=== PATIENT | female | born 1995 | race Caucasian/White ===

== ENCOUNTER 2016-09-22 14:51 | Emergency (ER) | payer OTHER ==
[~2016-09-22] VITALS: Wt 54.0 kg
[2016-09-22] MEDS ORDERED: morphine 4 MG/ML VIAL IV STA ×2 (15:22→18:34)
[2016-09-22] MEDS ORDERED: ONDANSETRON 4 MG INJ IV STA (15:22)
[2016-09-22] MEDS ORDERED: PIPER-TAZO 3.375 GM IV (PMX) 100 ML IVPB STA (15:22)
[2016-09-22] MEDS ORDERED: SOD CHLORIDE 0.9% 1,000 ML IV STA (15:22)
[2016-09-22] MEDS ORDERED: SODIUM CHLORIDE 0.9% 1L BAG IV* STA (15:22)
[2016-09-22] MEDS ORDERED: ACETAMINOPHEN 325 MG TAB PO ONE (15:30)
--- NOTE | 2016-09-22 16:14 | RADRPT ---
PROCEDURE: XR Chest. CLINICAL INDICATION: Cough. Sepsis. TECHNIQUE: Single frontal view. COMPARISON: None. FINDINGS: The lungs are clear. The heart size is normal. There is no pleural effusion. There is no pneumothorax. IMPRESSION: 1. Normal chest radiograph. RPTAT: QQ .Kwesi Lewis MD, Date Time Electronically viewed and signed by .Kwesi Lewis MD, on 09/22/2016 16:14 .R/
[2016-09-22 16:26] LABS: ADD SCAN DIFF NO
[2016-09-22 16:30] LABS: BASOPHILS % 0.1 % (0.0-2.0); HEMATOCRIT 39.1 % (37.0-47.0); HEMOGLOBIN 14.1 g/dl (12.0-16.0); LYMPHOCYTES # 1.4 10^3/ul (0.8-2.9); LYMPHOCYTES % 8.4 % (15.0-51.0); MEAN CORPUSCULAR HEMOGLOBIN 30.7 pg (29.0-33.0); MEAN CORPUSCULAR HGB CONC 36.1 g/dl (32.0-37.0); MEAN CORPUSCULAR VOLUME 85.2 fl (82.0-101.0); MEAN PLATELET VOLUME 9.9 fl (7.4-10.4); MONOCYTE # 0.8 10^3/ul (0.3-0.9); MONOCYTES % 4.5 % (0.0-11.0); NEUTROPHIL # 14.6 10^3/ul (1.6-7.5); NEUTROPHILS % 86.5 % (39.0-77.0); PLATELET COUNT 352 10^3/UL (140-415); RED BLOOD COUNT 4.59 10^6/ul (4.20-5.40); RED CELL DISTRIBUTION WIDTH 11.8 % (11.5-14.5); WHITE BLOOD COUNT 16.9 10^3/ul (4.8-10.8)
[2016-09-22 16:33] LABS: ADD UMIC NO; URINE BILIRUBIN (Dip) NEGATIVE (NEGATIVE); URINE BLOOD (Dip) NEGATIVE (NEGATIVE); URINE COLOR LT. YELLOW (YELLOW); URINE GLUCOSE (Dip) NEGATIVE (NEGATIVE); URINE KETONES (Dip) 40 (NEGATIVE); URINE LEUKOCYTE ESTERASE (Dip) NEGATIVE (NEGATIVE); URINE NITRITE (Dip) NEGATIVE (NEGATIVE); URINE TOTAL PROTEIN (Dip) NEGATIVE (NEGATIVE); URINE UROBILINOGEN (Dip) 0.2 E.U./dL (0.1-1.0)
--- NOTE | 2016-09-22 16:34 | RADRPT ---
PROCEDURE: CT Abdomen and Pelvis without contrast. CLINICAL INDICATION: Abdominal pain. TECHNIQUE: Multiple contiguous axial CT images of the abdomen and pelvis were obtained without the administration of intravenous contrast. Coronal and sagittal reconstructions were also performed. CTDIvol (mGy): 4.54; Total Exam DLP (mGy-cm): 226.07. One or more of the following dose reduction techniques were utilized: - Automated exposure control. - Adjustment of the mA and/or kV according to patient size. - Use of iterative reconstruction technique. COMPARISON: None. FINDINGS: Limited imaging of the lower thorax is unremarkable. The liver and spleen are homogeneous in density. The gallbladder, pancreas and adrenal glands are u nremarkable. The kidneys are symmetric in size. There are no nephroureteral stones. There is no hydronephrosis o r abnormal perinephric inflammation. The abdominal aorta is normal in caliber. There is no periaortic / retroperitoneal lymphadenopathy. The stomach and small and large intestines are unremarkable. The appendix terminates within the righ t lower quadrant of the abdomen. The appendix is enlarged measuring 9.5 cm in greatest diameter. M ultiple appendicoliths are present throughout the appendiceal lumen. Periappendiceal inflammatory e rell is present. A trace amount of free fluid is seen within the lower paracolic gutter. There is no evidence of large organized fluid collection. There is no evidence of free intra-abdominal air. Imaging findings are compatible with appendicitis. The bladder, uterus and adnexa are unremarkable. There is no free pelvic fluid. There is no pelvic sidewall or inguinal lymphadenopathy. Skeletal structures are unremarkable. Body wall soft tissues are unremarkable. IMPRESSION: Appendicitis. Trace free fluid is seen within the adjacent paracolic gutter. There is no evidence of free intra-abdominal air or organized fluid collection. RPTAT: QQ .Jennifer Matta MD, MD Date Time Electronically viewed and signed by .Jennifer Matta MD, on 09/22/2016 16:34 .T/
[2016-09-22 16:42] LABS: ALBUMIN 5.1 g/dl (3.3-4.9); CHLORIDE 102 mmol/L (97-110); INR 0.99; POTASSIUM 3.8 mmol/L (3.5-5.1); PROTIME 13.1 Sec (12.2-14.2); SODIUM 143 mmol/L (135-144)
[2016-09-22 16:43] LABS: PARTIAL THROMBOPLASTIN TIME 28.6 Sec (25.0-35.0)
[2016-09-22 16:45] LABS: ALANINE AMINOTRANSFERASE 38 IU/L (13-69); ALBUMIN/GLOBULIN RATIO 1.24; ALKALINE PHOSPHATASE 125 IU/L (42-121); ANION GAP 25 (8-16); ASPARTATE AMINO TRANSFERASE 34 IU/L (15-46); BILIRUBIN,INDIRECT 0.7 mg/dl (0-1.1); BILIRUBIN,TOTAL 0.7 mg/dl (0.2-1.3); BLOOD UREA NITROGEN 9 mg/dl (7-20); CALCIUM 10.4 mg/dl (8.4-10.2); CARBON DIOXIDE 20 mmol/L (21-31); GLUCOSE 109 mg/dl (70-220); TOTAL PROTEIN 9.2 g/dl (6.1-8.1)
[2016-09-22 17:08] LABS: TROPONIN-I < 0.012 ng/ml (0.00-0.12)
[2016-09-22 17:30] VITALS: BP 129/85; PULSE 91; RESP 17
--- NOTE | 2016-09-22 19:04 | ERA ---
ER Documentation Chief Complaint Date/Time DATE: 09/22/16 TIME: 19:02 Chief Complaint RLQ ABD PAIN/TENDERNESS, BLOATING, NAUSEA, FEVER HPI Patient is a 21-year-old female with no medical problems who presents with abdominal pain. He says "I feel like I have appendicitis". The patient has a fever. The patient feels cold. The patient had nausea and chills. She describes as a pressure pain in the right lower quadrant. The symptoms started at 10:30 AM. Upon review of old medical records the patient one previous visit in 2011. She does not know the name of her primary doctor. ROS All systems reviewed and are negative except as per history of present illness. Medications Home Meds No Active Prescriptions or Reported Meds Allergies Allergies: Coded Allergies: No Known Allergy (Unverified , 01/16/12) PMhx/Soc Medical and Surgical Hx: pt denies Medical Hx, pt denies Surgical Hx History of Surgery: No Anesthesia Reaction: No Hx Neurological Disorder: No Hx Respiratory Disorders: No Hx Cardiac Disorders: No Hx Psychiatric Problems: No Hx Miscellaneous Medical Probl: No Hx Alcohol Use: No Hx Substance Use: No Hx Tobacco Use: No Smoking Status: Never smoker FmHx Family History: diabetes Physical Exam Vitals Vital Signs Date Time Temp Pulse Resp B/P Pulse Ox O2 Delivery O2 Flow Rate FiO2 09/22/16 17:30 91 17 129/85 100 Room Air 09/22/16 15:35 114 30 106/97 100 Room Air 09/22/16 14:58 101.5 109 19 143/93 99 Physical Exam Const: Mild distress secondary to pain Head: Atraumatic Eyes: Normal Conjunctiva ENT: Normal External Ears, Nose and Mouth. Neck: Full range of motion..~ No meningismus. Resp: Clear to auscultation bilaterally Cardio: Regular rate and rhythm, no murmurs Abd: Soft, right lower quadrant tenderness to palpation Skin: No petechiae or rashes Back: No midline or flank tenderness Ext: No cyanosis, or edema Neur: Awake and alert Psych: Normal Mood and Affect Result Diagram: 09/22/16 1610 09/22/16 1610 Results 24 hrs Laboratory Tests Test 09/22/16 15:54 09/22/16 16:10 Urine Bilirubin NEGATIVE Urine Clarity SLIGHTLY CLOUDY Urine Color LT. YELLOW Urine Glucose NEGATIVE% Urine Hemoglobin NEGATIVE Urine Ketones 40 Urine Leukocyte Esterase NEGATIVE Urine Nitrite NEGATIVE Urine Specific [place] 1.020 Urine Total Protein NEGATIVE Urine Urobilinogen 0.2 E.U./dL Urine pH 7.0 Activated Partial Thromboplast Time 28.6Sec Alanine Aminotransferase (ALT/SGPT) 38IU/L Albumin 5.1g/dl Albumin/Globulin Ratio 1.24 Alkaline Phosphatase 125IU/L Anion Gap 25 Aspartate Amino Transf (AST/SGOT) 34IU/L Basophils # 0.010^3/ul Basophils % 0.1% Blood Urea Nitrogen 9mg/dl Calcium Level 10.4mg/dl Carbon Dioxide Level 20mmol/L Chloride Level 102mmol/L Creatinine 0.60mg/dl Direct Bilirubin 0.00mg/dl Eosinophils # 0.010^3/ul Eosinophils % 0.0% Globulin 4.10g/dl Glucose Level 109mg/dl Hematocrit 39.1% Hemoglobin 14.1g/dl INR International Normalized Ratio 0.99 Indirect Bilirubin 0.7mg/dl Lipase 72U/L Lymphocytes # 1.410^3/ul Lymphocytes % 8.4% Mean Corpuscular Hemoglobin 30.7pg Mean Corpuscular Hemoglobin Concent 36.1g/dl Mean Corpuscular Volume 85.2fl Mean Platelet Volume 9.9fl Monocytes # 0.810^3/ul Monocytes % 4.5% Neutrophils # 14.610^3/ul Neutrophils % 86.5% Nucleated Red Blood Cells # 0.010^3/ul Nucleated Red Blood Cells % 0.0/100WBC Platelet Count 81459^3/UL Potassium Level 3.8mmol/L Prothrombin Time 13.1Sec Prothrombin Time Ratio 1.0 Red Blood Count 4.5910^6/ul Red Cell Distribution Width 11.8% Sodium Level 143mmol/L Total Bilirubin 0.7mg/dl Total Protein 9.2g/dl Troponin I < 0.012ng/ml White Blood Count 16.910^3/ul Current Medications Medications (Trade) Dose Ordered Sig/Roshan Route PRN Reason Start Time Stop Time Status Last Admin Dose Admin Sodium Chloride (NS) 1,000 ml @ 1,000 mls/hr Q1H STAT IV 09/22/16 15:22 09/22/16 16:21 DC 09/22/16 18:10 Morphine Sulfate (morphine) 4 mg ONCE STAT IV 09/22/16 15:22 09/22/16 15:24 DC 09/22/16 16:08 Ondansetron HCl (Zofran Inj) 4 mg ONCE STAT IV 09/22/16 15:22 09/22/16 15:24 DC 09/22/16 16:08 Sodium Chloride 1670 ml 1,670 ml BOLUS OVER 2 HOURS STAT IV* 09/22/16 15:22 09/22/16 15:24 DC 09/22/16 16:09 Piperacillin Sod/ Tazobactam Sod (Zosyn 3.375gm/ 100 ml (Pmx)) 100 ml @ 200 mls/hr ONCE STAT IVPB 09/22/16 15:22 09/22/16 15:51 DC 09/22/16 16:09 Acetaminophen (Tylenol Tab) 650 mg ONCE ONCE PO 09/22/16 15:30 09/22/16 15:31 DC 09/22/16 16:08 Morphine Sulfate (morphine) 4 mg ONCE STAT IV 09/22/16 18:34 09/22/16 18:50 DC Procedures/MDM CT scan shows acute appendicitis per radiology. Patient is a 21-year-old female presents with acute appendicitis. Her white blood cell count is elevated and she has pain in the right lower quadrant. CT scan confirmed acute appendicitis. I did initially speak with Dr. Navarrete the surgeon on-call but the patient has insurance which is capitated to [facility] and therefore the patient will be transferred for insurance reasons. She will be transferred by ambulance. There is an accepting physician at the other facility. This has been arranged by case management. At this point I doubt sepsis but the patient was given 30 mL/kg fluid bolus and Zosyn IV. She will likely need appendectomy. Departure Diagnosis: Primary Impression: Appendicitis Qualified Code: K35.3 - Acute appendicitis with localized peritonitis Additional Impression: Abdominal pain Qualified Code: R10.31 - Right lower quadrant abdominal pain Condition: LORI Yancey MD Sep 22, 2016 19:04
== END 2016-09-22 18:00 | disposition short-term general hospital (02) ==
LOC: E/R 14:51
DX: K35.3 Acute appendicitis with localized peritonitis (principal); R11.0 Nausea; R40.2142 Coma scale, eyes open, spontaneous, at arrival to emergency department; R40.2252 Coma scale, best verbal response, oriented, at arrival to emergency department; R40.2362 Coma scale, best motor response, obeys commands, at arrival to emergency department
CPT/HCPCS: 36415; 71010; 74176; 80053; 81003; 83690; 84484; 85025; 85610; 85730; 93005; 96374; 96375; J2270; J2405; J2543; J7030; Z7502; Z7610